=== PATIENT | female | born 1995 | race Caucasian/White ===

== ENCOUNTER → 2017-12-30 | Outpatient (REF) | payer OTHER | LOC: M SFHCLERA 16:41 | DX: J02.9 Acute pharyngitis, unspecified (principal) ==

== ENCOUNTER → 2019-11-26 | Outpatient (REF) | payer BC | LOC: M SFHCLERA 12:43 | PROVIDERS: ATTEND Physician Assistant | DX: R09.81 Nasal congestion (principal) ==